=== PATIENT | female | born 1965 | race Caucasian/White ===

== ENCOUNTER 2018-05-11 18:25 | Emergency (ER) | payer OTHER ==
[~2018-05-11] VITALS: Ht 165.1 cm; Wt 129.7 kg
[2018-05-11 18:39] VITALS: BP 168/113
--- NOTE | 2018-05-11 18:54 | NUR ---
52/F BIB DAUGHTER RIGHT KNEE INJURY S/P MECHANICAL FALL X 2 DAYS---AMBULATORY WITH SLOW GUARDED GAIT.NO SWELLING OR DISCOLORATION NOTED AT THIS TIME. HX---ASTHMA, RX---ALBUTEROL. . DENIES N/V/D; SKIN IS BRUISE TO R UPPER LEG. AAOX4. LUNGS CLEAR BL. PT DENIES ANY FEVER, CP, SOB, OR COUGH AT THIS TIME; PATIENT STATES PAIN OF 10/10 AT THIS TIME. PATIENT POSITIONED FOR COMFORT; HOB ELEVATED; BEDRAILS UP X2; BED DOWN. ER MD MADE AWARE OF PT STATUS.
--- NOTE | 2018-05-11 19:06 | NUR ---
Pt report given to RAMESH OLIVAS . Transfer of care at this time.
--- NOTE | 2018-05-11 19:25 | NUR ---
X-Ray at bedside.
--- NOTE | 2018-05-11 21:00 | NUR ---
Dr. Montero evaluating patient at bedside.
--- NOTE | 2018-05-11 21:04 | NUR ---
PT SITTING IN BED, VS NOTED, DR MORENO AT BEDSIDE TO EVALUATE PT.
--- NOTE | 2018-05-11 21:10 | NUR ---
EMT WRAPPED R KNEE WITH MARTINEZ BANDAGE AND PROVIDED PT WITH CRUTCHES. PT VERBALIZED UNDERSTANDING, DEMONSTRATED CORRECT USE.
[2018-05-11 21:21] VITALS: BP 150/100
== END 2018-05-11 21:22 | disposition home or self-care (01) ==
LOC: MED 18:25
DX: S80.01XA Contusion of right knee, initial encounter (principal); J45.909 Unspecified asthma, uncomplicated; Z88.6 Allergy status to analgesic agent; Z88.1 Allergy status to other antibiotic agents; Z88.0 Allergy status to penicillin; Z91.09 Other allergy status, other than to drugs and biological substances; W17.81XA Fall down embankment (hill), initial encounter; Y93.89 Activity, other specified; Y92.828 Other wilderness area as the place of occurrence of the external cause; Y99.8 Other external cause status
CPT/HCPCS: 73562; 99284